=== PATIENT | female | born 2000 | race African-American/Black ===

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

== ENCOUNTER 2019-10-06 20:41 | Emergency (ER) | payer SELFPAY ==
[~2019-10-06] VITALS: Ht 154.9 cm; Wt 71.4 kg
[2019-10-06 20:55] VITALS: BP 132/71
[2019-10-06 22:09] LABS: CLARITY URINE CLOUDY (CLEAR); COLOR URINE YELLOW (YELLOW); KETONES URINE TRACE (NEGATIVE); LEUKOCYTE ESTERASE URINE 1+ (NEGATIVE); NITRITE URINE NEGATIVE (NEGATIVE); OCCULT BLOOD URINE NEGATIVE (NEGATIVE); PH URINE 5.5 (4.5-8.0); PROTEIN URINE NEGATIVE (NEGATIVE); SPECIFIC GRAVITY URINE 1.035 (1.005-1.030)
== END 2019-10-07 00:04 | disposition home or self-care (01) ==
LOC: ER 20:41
DX: N30.00 Acute cystitis without hematuria (principal); L29.2 Pruritus vulvae; J45.909 Unspecified asthma, uncomplicated; Z88.6 Allergy status to analgesic agent
CPT/HCPCS: 81003; 81025; 99283